=== PATIENT | male | born 2000 | race African-American/Black ===

== ENCOUNTER 2023-10-09 18:38 | Emergency (ER) | payer OTHER ==
[~2023-10-09] VITALS: Ht 172.7 cm; Wt 78.2 kg
[2023-10-09 19:28] LABS: BASO % 0.3 % (0.0-1.0); EOS # 0.1 10^3/uL (0.0-0.5); EOS % 1.3 % (0.0-3.0); HEMOGLOBIN 15.9 g/dl (13.5-17.5); LYMPH # 0.6 10^3/uL (1.5-5.0); LYMPH % 8.2 % (24.0-44.0); MEAN CORPUSCULAR HEMOGLOBIN 27.9 pg (27.0-33.0); MEAN CORPUSCULAR HGB CONC 32.4 g/dl (32.0-36.5); MEAN CORPUSCULAR VOLUME 86.1 fl (80.0-96.0); MONO # 0.7 10^3/uL (0.0-0.8); MONO % 8.6 % (2.0-8.0); NEUTROPHILS # 6.2 10^3/uL (1.5-8.5); NEUTROPHILS % 81.3 % (36.0-66.0); PLATELET COUNT, AUTOMATED 282 10^3/uL (150-450); RED BLOOD COUNT 5.69 10^6/uL (4.30-6.10); WHITE BLOOD COUNT 7.6 10^3/uL (4.0-10.0)
[2023-10-09 19:54] LABS: LIPASE 19 U/L (12-53)
[2023-10-09 19:56] LABS: ALBUMIN 4.4 G/DL (3.2-5.2); ALKALINE PHOSPHATASE 90 U/L (46-116); ALT/SGPT 31 U/L (7.0-40); AST/SGOT 34 U/L (<34); BILIRUBIN,DIRECT 0.3 MG/DL (<0.4); BILIRUBIN,TOTAL 0.9 MG/DL (0.3-1.2); BLOOD UREA NITROGEN 20 MG/DL (9-23); CALCIUM LEVEL 9.7 MG/DL (8.5-10.1); CARBON DIOXIDE LEVEL 29 MMOL/L (20-31); CHLORIDE LEVEL 100 MMOL/L (98-107); CREATININE FOR GFR 1.21 MG/DL (0.70-1.30); GLOMERULAR FILTRATION RATE > 60.0 (>60); GLUCOSE, FASTING 86 MG/DL (60-100); POTASSIUM SERUM 4.4 MMOL/L (3.5-5.1); SODIUM LEVEL 136 MMOL/L (136-145); TOTAL PROTEIN 8.4 G/DL (5.7-8.2)
[2023-10-09] MEDS ORDERED: ISOVUE-370 76% 100ML VIAL As Ordered ONE (23:00)
[2023-10-09] MEDS: NS 1,000 ML IV ONE ×2 (23:16→23:52)
[2023-10-09] MEDS: ONDANSETRON 4MG 2ML VIAL IV ONE (23:17)
[2023-10-09] MEDS: ACETAMINOPHEN *IV* 1,000 MG in IV 1 EA IV ONE (23:17)
[2023-10-09 23:29] LABS: RSV AMPLIFICATION NEGATIVE (NEGATIVE)
[2023-10-10] MEDS ORDERED: ONDA4TAB6 PO (00:22)
[2023-10-10 00:43] VITALS: BP 106/59; TEMP 99; O2SAT 98
== END 2023-10-10 00:46 | disposition home or self-care (01) ==
LOC: M ED 18:38
DX: R10.9 Unspecified abdominal pain (principal); R11.10 Vomiting, unspecified; R19.7 Diarrhea, unspecified; Z79.899 Other long term (current) drug therapy
CPT/HCPCS: 74177; 80048; 80076; 83605; 83690; 85025; 86140; 87040; 87631; 96361; 96365; 99284; J0131; J2405; Q9967